=== PATIENT | female | born 1980 | race Caucasian/White ===

== ENCOUNTER 2016-12-31 19:39 | Inpatient (IN) | payer OTHER ==
[~2016-12-31] VITALS: Ht 172.7 cm; Wt 99.0 kg
[2016-12-31] VITALS (13 sets, daily range): BP systolic 107–143; BP diastolic 54–82
[2016-12-31] MEDS ORDERED: SODIUM CHLORIDE FLUSH 3 ML SYR ONE (20:02)
[2016-12-31] MEDS ORDERED: SODIUM CHLORIDE FLUSH 10 ML ONE (20:02)
[2016-12-31] MEDS ORDERED: OXYTOCIN INJ 20 UNIT in NS 1000ml 1,000 ML IV PRN (20:18)
[2016-12-31] MEDS ORDERED: SODIUM CHLORIDE FLUSH 3 ML SYR IV PRN (20:20)
[2016-12-31] MEDS ORDERED: SODIUM CHLORIDE FLUSH 10 ML SYR IV PRN (20:20)
[2016-12-31] MEDS ORDERED: AMPICILLIN INJ 2,000 MG in SODIUM CHLORIDE 100 ML IV SCH (20:20)
[2016-12-31] MEDS ORDERED: CALCIUM CARBONATE CHEWABLE 300 MG (TUMS) TABLET PO PRN (20:20)
[2016-12-31] MEDS ORDERED: AMPICILLIN 2000 MG VIAL ONE ×2 (20:34→20:41)
[2016-12-31] MEDS ORDERED: SODIUM CHLORIDE 50 ML IV ONE (20:34)
[2016-12-31] MEDS ORDERED: SODIUM CHLORIDE 100 ML ONE (20:41)
[2016-12-31 21:15] LABS: MEAN CORPUSCULAR HEMOGLOBIN 31.5 PG (26.0-34.0); MEAN CORPUSCULAR HGB CONC 35.2 g/dL (31.0-37.0); MEAN PLATELET VOLUME 11.1 FL (6.0-9.5); WHITE BLOOD COUNT 14.33 10^3uL (4.0-11.0)
[2016-12-31] MEDS ORDERED: ROPIVACAINE 1% 10 MG/ML (NAROPIN) 20 ML AMPUL ONE (21:33)
[2016-12-31 22:58] LABS: BILIRUBIN,URINE Negative (Negative); CLARITY,URINE Clear; GLUCOSE, URINE (UA) Negative (Negative); LEUKOCYTE ESTERASE ,URINE Negative (Negative); UROBILINOGEN,URINE 0.2 mg/dL (0.2-1.0)
[2016-12-31 22:59] LABS: COLOR,URINE Light Yellow
[2017-01-01] VITALS (11 sets, daily range): BP systolic 120–138; BP diastolic 61–82
[2017-01-01] MEDS ORDERED: AMPICILLIN INJ 1,000 MG in SODIUM CHLORIDE 50 ML IV SCH (00:20)
[2017-01-01] MEDS ORDERED: HYDROcodone/APAP 5 MG/325 MG (NORCO) TAB PO PRN (01:15)
[2017-01-01] MEDS ORDERED: LANOLIN OINTMENT 28 GM TUBE TOP PRN (01:15)
--- NOTE | 2017-01-01 02:45 | NUR ---
Transferred to room 228 by wheelchair. Transfers independently to and from wheelchair. 0315 Up to bathroom. Voids large amount. Not measured. Pericare instructed and return demonstrated. [place] provided upon request. Requests infant go to nursery until next feeding. will stay in recliner at bedside. No other requests or needs at this time. Infant to nursery with nursing staff.
[2017-01-01] MEDS: IBUPROFEN 600 MG (MOTRIN) TAB PO PRN ×4 (02:57→20:59)
--- NOTE | 2017-01-01 06:10 | NUR ---
Nursed baby and up to void. No concerns or needs. Requests baby be kept by nurse until breakfast or next feeding.
[2017-01-01] MEDS: OMEGA-3 FATTY ACIDS (FISH OIL) 500 MG CAPSULE PO SCH (08:44)
[2017-01-01] MEDS: DOCUSATE SODIUM 100 MG (COLACE) CAP PO SCH ×2 (08:44→20:58)
[2017-01-01] MEDS: MAGNESIUM HYDROXIDE 80MG/ML (MILK OF MAGNESIA) 30 ML UDC PO SCH ×2 (08:44→21:00)
[2017-01-01] MEDS: PRENATAL VITAMIN 1 EA TAB PO SCH (08:45)
[2017-01-01] MEDS ORDERED: [UNRECOGNIZED DRUG - OTHER] PO SCH (09:00)
[2017-01-01] MEDS ORDERED: PRENATAL VITS W CA FE FA PO SCH (09:00)
--- NOTE | 2017-01-01 13:00 | NUR ---
report received and care assummed at this time. pt denies pain or needs.
[2017-01-02] MEDS: MAGNESIUM HYDROXIDE 80MG/ML (MILK OF MAGNESIA) 30 ML UDC PO SCH (09:00)
[2017-01-02] MEDS: PRENATAL VITAMIN 1 EA TAB PO SCH (09:28)
[2017-01-02] MEDS: DOCUSATE SODIUM 100 MG (COLACE) CAP PO SCH (09:29)
[2017-01-02] MEDS: IBUPROFEN 600 MG (MOTRIN) TAB PO PRN ×2 (09:29→17:03)
[2017-01-02 10:00] VITALS: BP 132/76
[2017-01-02] MEDS: OMEGA-3 FATTY ACIDS (FISH OIL) 500 MG CAPSULE PO SCH (11:15)
--- NOTE | 2017-01-02 18:59 | NUR ---
1830 pt discharged in good condition. Discharge teaching/instructions reviewed with pt who denies questions at this time. Advised her to call any time if she does have questions. Security bracelets collected and matched. Pt ambulated while carried secured in infant car seat, accompanied by two daughters and this RN to the ER entrance of the hospital, where the family left via private vehicle.
== END 2017-01-02 18:30 | disposition home or self-care (01) | DRG 775 ==
LOC: OBGOP 19:39 → OB 19:42 → EDSTATUS 20:20 → OB 01-01 00:46
PROVIDERS: ADMIT Family Medicine; ATTEND Family Medicine
PROC: 10E0XZZ Delivery of Products of Conception, External Approach (ICD-10-PCS; principal; 2017-01-01)
DX: O99.824 Streptococcus B carrier state complicating childbirth (principal); O69.81X0 Labor and delivery complicated by cord around neck, without compression, not applicable or unspecified; O69.89X0 Labor and delivery complicated by other cord complications, not applicable or unspecified; Z3A.39 39 weeks gestation of pregnancy; Z37.0 Single live birth
CPT/HCPCS: 36415; 81003; 85014; 85018; 85027; 86850; 86900; 86901; 99202